=== PATIENT | female | born 1970 | race Caucasian/White ===

== ENCOUNTER 2017-05-17 11:45 | Observation (INO) | payer BC ==
[2017-05-17 14:19] LABS: BASOPHILS # (AUTO) 0.1 X10^3/uL (0.0-0.1); BASOPHILS % (AUTO) 0.8 % (0.2-1.0); EOSINOPHILS # (AUTO) 0.1 x10^3/uL (0.0-0.2); EOSINOPHILS % (AUTO) 1.5 % (0.9-2.9); HEMATOCRIT 38.3 % (36.0-47.0); HEMOGLOBIN 13.2 g/dL (12.0-16.0); LYMPHOCYTES # (AUTO) 1.4 X10^3/uL (1.3-2.9); MEAN CORPUSCULAR HGB CONC 34.5 g/dL (33.0-35.0); MEAN PLATELET VOLUME 8.2 fL (7.4-11.0); MONOCYTES # (AUTO) 0.6 x10^3/uL (0.3-0.8); MONOCYTES % (AUTO) 7.6 % (0.0-13.0); NEUTROPHILS % (AUTO) 73.1 % (42.0-75.0); PLATELET COUNT 192 X10^3/uL (150.0-450.0); WHITE BLOOD COUNT 8.2 X10^3/uL (3.6-10.0)
[2017-05-17] MEDS: NS 1000 ML 1,000 ML IV SCH (14:23)
[2017-05-17 14:41] LABS: ALANINE AMINOTRANSFERASE 35 Units/L (12-78); ALBUMIN 3.8 g/dL (3.4-5.0); ALKALINE PHOSPHATASE 80 Units/L (46-116); ASPARTATE AMINO TRANSFERASE 20 Units/L (15-37); BLOOD UREA NITROGEN 15 mg/dL (7-18); CALCIUM 8.9 mg/dL (8.5-10.1); CHLORIDE 108 mmol/L (98-107); CKMB % 1.1 % (<4); CREATINE KINASE 98 Units/L (26-192); CREATINE KINASE MB 1.1 ng/mL (0-4.0); GLUCOSE 99 mg/dL (65-99); SODIUM 146 mmol/L (136-145); TOTAL PROTEIN 7.5 g/dL (6.4-8.2); TROPONIN I < 0.02 ng/mL (0-1.5); eGFR BLACK RACES > 60 (>60); eGFR NON BLACK RACES > 60 (>60)
[2017-05-17 14:48] LABS: D DIMER < 100 ng/mL (0-400)
--- NOTE | 2017-05-17 14:57 | RAD ---
HISTORY: Chest pain Study: Chest one view Comparison: None Findings: The trachea is midline. The cardiac silhouette is unremarkable. The lungs are clear without focal infiltrate or effusion. The bony thorax is unremarkable. IMPRESSION: 1. No acute cardiopulmonary disease. Reported By:
[2017-05-17] MEDS: ZOFRAN INJ 4 MG VIAL IVP PRN ×2 (15:30→22:17)
[2017-05-17] MEDS: PEPCID 20 MG IV PREMIX* 20 MG/50 ML BAG IV SCH (15:30)
[2017-05-17] MEDS ORDERED: PHENERGAN INJ 25 MG IV PRN (18:00)
[2017-05-17 18:41] LABS: CKMB % 1.1 % (<4); CREATINE KINASE 89 Units/L (26-192); CREATINE KINASE MB < 1.0 ng/mL (0-4.0); TROPONIN I < 0.02 ng/mL (0-1.5)
[2017-05-17 19:52] VITALS: BMI 30.6
[2017-05-17 22:15] LABS: CKMB % 1.3 % (<4); CREATINE KINASE 78 Units/L (26-192); CREATINE KINASE MB < 1.0 ng/mL (0-4.0); TROPONIN I < 0.02 ng/mL (0-1.5)
[2017-05-17] MEDS: TYLENOL 325 MG TAB PO PRN (22:36)
[2017-05-17 22:59] LABS: BILIRUBIN,URINE NEGATIVE (NEGATIVE); BLOOD/HEMOGLOBIN,URINE NEGATIVE (NEGATIVE); GLUCOSE, URINE NEGATIVE (NEGATIVE); KETONES,URINE NEGATIVE (NEGATIVE); LEUKOCYTE ESTERASE ,URINE NEGATIVE (NEGATIVE); NITRITES,URINE NEGATIVE (NEGATIVE); PROTEIN,URINE NEGATIVE (NEGATIVE); UROBILINOGEN,URINE NORMAL (NORMAL)
[2017-05-17 23:05] LABS: APPEARANCE,URINE CLEAR (CLEAR); BACTERIA,URINE 1+ /HPF (NEGATIVE); COLOR,URINE YELLOW (YELLOW); MUCUS,URINE FEW /HPF (NEGATIVE); RBC,URINE NONE SEEN /HPF (NEGATIVE); SQUAMOUS EPITHELIAL CELL,UR FEW /HPF (NEGATIVE)
[2017-05-18] MEDS: NS 1000 ML 1,000 ML IV SCH ×2 (05:40→18:58)
[2017-05-18 06:05] LABS: ALANINE AMINOTRANSFERASE 29 Units/L (12-78); ALBUMIN 2.9 g/dL (3.4-5.0); ALKALINE PHOSPHATASE 66 Units/L (46-116); ASPARTATE AMINO TRANSFERASE 17 Units/L (15-37); BLOOD UREA NITROGEN 17 mg/dL (7-18); CALCIUM 7.8 mg/dL (8.5-10.1); CARBON DIOXIDE 25.4 mmol/L (21-32); CHLORIDE 113 mmol/L (98-107); COR CA(FOR HYPOALB) 8.7 mg/dL (8.5-10.1); CREATININE 1.05 mg/dL (0.55-1.02); GLUCOSE 104 mg/dL (65-99); SODIUM 147 mmol/L (136-145); TOTAL PROTEIN 6.1 g/dL (6.4-8.2); eGFR BLACK RACES > 60 (>60); eGFR NON BLACK RACES 60 (>60)
[2017-05-18 06:09] LABS: BASOPHILS % (AUTO) 0.3 % (0.2-1.0); EOSINOPHILS # (AUTO) 0.1 x10^3/uL (0.0-0.2); EOSINOPHILS % (AUTO) 1.9 % (0.9-2.9); HEMOGLOBIN 11.4 g/dL (12.0-16.0); LYMPHOCYTES # (AUTO) 1.1 X10^3/uL (1.3-2.9); LYMPHOCYTES % (AUTO) 17.7 % (21.0-51.0); MEAN CORPUSCULAR HEMOGLOBIN 30.3 pg (27.0-34.0); MEAN CORPUSCULAR HGB CONC 34.6 g/dL (33.0-35.0); MEAN CORPUSCULAR VOLUME 87.4 fL (80.0-100.0); MEAN PLATELET VOLUME 8.3 fL (7.4-11.0); MONOCYTES # (AUTO) 0.5 x10^3/uL (0.3-0.8); MONOCYTES % (AUTO) 7.7 % (0.0-13.0); NEUTROPHILS # (AUTO) 4.7 x10^3/uL (2.2-4.8); NEUTROPHILS % (AUTO) 72.4 % (42.0-75.0); PLATELET COUNT 145 X10^3/uL (150.0-450.0); RED BLOOD COUNT 3.77 X10^6/uL (3.5-5.4); RED CELL DISTRIBUTION WIDTH 13.8 % (11.6-16.5); WHITE BLOOD COUNT 6.4 X10^3/uL (3.6-10.0)
--- NOTE | 2017-05-18 06:12 | RAD ---
HISTORY: Chest pain Study: Single-view chest Comparison: May 17, 2017 Findings: There again surgical clips present in the left axilla. The trachea is midline. The heart size is upp er normal with aortic uncoiling. Lungs and pleural spaces are clear. Osseous structures are intact. IMPRESSION: Hypertensive configuration without acute cardiopulmonary disease. Reported By:
[2017-05-18] MEDS: TOPROL XL PO SCH (08:38)
[2017-05-18] MEDS: PROTONIX TAB 40 MG PO SCH (08:38)
[2017-05-18] MEDS: PEPCID 20 MG IV PREMIX* 20 MG/50 ML BAG IV SCH (08:38)
[2017-05-18] MEDS: PATIENT'S HOME MEDICATION (Letrozole [Femara] 2.5 MG) PO SCH (08:47)
--- NOTE | 2017-05-18 10:48 | DR.UPDATE ---
H&P Update History and Physical Update: WAS SEEN IN THE OFFICE TODAY. A H&P WAS COMPLETED PRIOR TO ADMISSION. PATIENT HAS BEEN SEEN AND EXAMINED WITH NO CHANGES NOTED. Changes noted: NO Yes with the following:
[2017-05-18] MEDS: ECOTRIN TAB 325 MG PO SCH (12:12)
--- NOTE | 2017-05-18 17:40 | US ---
RIGHT UPPER QUADRANT ULTRASOUND HISTORY: Abdominal pain Comparison: None Technique: Multiple medina scale and color flow Doppler images of the right upper quadrant were obtain ed. Findings: Overall study is limited by overlying bowel gas. The liver is increased in echogenicity. No focal m ass. No intrahepatic bile duct dilatation. No gallstones. No pericholecystic fluid or gallbladder wa ll thickening. The technologist did not report a positive sonographic Sanabria's sign. The common bile duct measures 3 mm. The right kidney measures 11.2 cm. No hydronephrosis or renal masses. The pancreas is obscured by overlying bowel gas. IMPRESSION: 1. Hepatic steatosis. Reported By:
[2017-05-18] MEDS: TYLENOL 325 MG TAB PO PRN (17:41)
[2017-05-18] MEDS ORDERED: CRESTOR TAB 10 MG PO SCH (21:00)
--- NOTE | 2017-05-18 21:35 | PCM.PROG ---
Progress Note - Progress Note for Day of Date: 05/18/17 - Subjective Subjective: IS A 47 YEAR OLD PATIENT OF OURS WHO WAS DIRECT ADMITTED FROM THE OFFICE YESTERDAY WITH COMPLAINTS OF CHEST PAIN AND UPPER BACK AND SHOULDER PAIN. SHE WAS ALERT AND ORIENTED, SITTING UP IN BED, ON MORNING ROUNDS. PATIENT CONTINUES WITH CHEST PAIN AND SHORTNESS OF BREATH. SHE IS ALSO NOTED WITH COMPLAINTS OF RUQ PAIN. LUNGS WERE CLEAR ON AUSCULTATION. VITALS THIS MORNING WERE 98.0-73-20-98%-107/66. CBC WNL EXCEPT HBG 11.4, HCT 33. CMP WITHIN NORMAL LIMITS EXCEPT SODIUM 147, CHLORIDE 113, CREATININE 1.05, GLUCOSE 1.4, CALCIUM 7.8, TOTAL PROTEIN 6.1, ALBUMIN 2.8. CHEST XRAY REPORTS HYPERTENSIVE CONFIGURATION WITHOUT ACUTE PULMONARY DISEASE. ECHO REPORTED AN EJECTION FRACTION OF 65%. WE WILL ORDER A GALLBLADDER US, START PATIENT ON ROSUVASTATIN AT HS, AND ECOTRIN 325 MG HS. WE WILL RECHECK LABS AND FOLLOW UP WITH PATIENT IN AM. - Past Medical Family Social History Past Med/Fam/Surg Hx: No changes since H&P Allergies: Allergies No Known Drug Allergies Allergy (Verified 05/17/17 14:00) - Review of Systems ROS: No change since H&P - Vital Signs and I&O's Vital Signs: Temperature 98.8 F Pulse Rate [Left Brachial] 88 Respiratory Rate 18 Blood Pressure [Right Arm] 131/71 Blood Pressure [Left Arm] 132/66 O2 Sat by Pulse Oximetry 98 Intake and Output: Intake & Output 05/16/17 05/17/17 05/18/17 05/19/17 11:59 11:59 11:59 11:59 Intake Total 665 440 Output Total 0 Balance 665 440 - Physical Exam Oriented: Normal. negative: Time, Person, Place, Not Oriented, Unable to test, Other Eyes: Normal. negative: Blurred Vision, Diplopia, Discharge, Pain, Redness, Photophobia, Other Ear: Normal. negative: Right, Left, Swelling, Ecchymosis, Hemotypanum, Abrasion , Laceration Nose: Normal. negative: Injected, Discharge, Blood, Other Throat: Normal. negative: Tonsillar Hypertrophy, Red, Exudate, Dry, Other Respiratory: Normal, OTHER (SHORTNESS OF BREATH ). negative: Right, Left, Generalized, Superior, Inferior, Diminished, Wheezes, Rales, Rhonchi Cardiovascular: Normal, Other (CHEST PAIN). negative: Tachycardia, Bradycardia , Irregular, S3, S4, Systolic, Diastolic, Murmur, Edema : Normal. negative: Dysuria, Hematuria, Frequency, Discharge, Testicular Pain , Bleeding, , Other Auscultation: Bowel Sounds: Normal. negative: Bruit, Absent, Increased, Decreased, High Pitched, Other Palpation: Normal Tenderness: RUQ (RUQ PAIN ) Skin: Normal. negative: Decreased Turgur, Rash, Papular, Macular, Maculopapular , Vesicular, Pustular, Petechial, Red, Tender, Hot, Diaphoresis, Wound, Bruising , Ecchymosis, Other Musculoskeletal: Normal. negative: Right, Left, Shoulder, Clavicle, Arm, Elbow , Forearm, Wrist, Hand, Hip, Thigh, Knee, Leg, Ankle, Foot, Back:Thoracic, Back: Lumbar, Back:Midline, Back:Paraspinous, Pelvis, Swelling, Tender, Deformity, Pulse Deficit, Motor Deficit, Sensory Deficit, Instability, Crepitance Psychiatric: Normal. negative: Anxiety, Depression, Agitation, Other Mood Description: Calm. negative: Angry, Apathetic, Depressed, Fearful, Flat, Happy, Hostile, Sad, Suspicious, Withdrawn, Anxious, Appropriate, Labile Affect: Normal Speech Pattern: Clear, Appropriate - Laboratory and Diagnostics Result Diagrams: 05/18/17 05:32 05/18/17 05:32 Labs: Laboratory WBC 6.4 X10^3/uL (3.6-10.0) 05/18/17 05:32 RBC 3.77 X10^6/uL (3.5-5.4) 05/18/17 05:32 Hgb 11.4 g/dL (12.0-16.0) L 05/18/17 05:32 Hct 33.0 % (36.0-47.0) L 05/18/17 05:32 MCV 87.4 fL (80.0-100.0) 05/18/17 05:32 MCH 30.3 pg (27.0-34.0) 05/18/17 05:32 MCHC 34.6 g/dL (33.0-35.0) 05/18/17 05:32 RDW 13.8 % (11.6-16.5) 05/18/17 05:32 Plt Count 145 X10^3/uL (150.0-450.0) L 05/18/17 05:32 MPV 8.3 fL (7.4-11.0) 05/18/17 05:32 Neut % 72.4 % (42.0-75.0) 05/18/17 05:32 Lymph % 17.7 % (21.0-51.0) L 05/18/17 05:32 Mcdonough % 7.7 % (0.0-13.0) 05/18/17 05:32 Eos % 1.9 % (0.9-2.9) 05/18/17 05:32 Baso % 0.3 % (0.2-1.0) 05/18/17 05:32 Neut # 4.7 x10^3/uL (2.2-4.8) 05/18/17 05:32 Lymph # 1.1 X10^3/uL (1.3-2.9) L 05/18/17 05:32 Mcdonough # 0.5 x10^3/uL (0.3-0.8) 05/18/17 05:32 Eos # 0.1 x10^3/uL (0.0-0.2) 05/18/17 05:32 Baso # 0.0 X10^3/uL (0.0-0.1) 05/18/17 05:32 Absolute Nucleated RBC 0.0 /100WBC 05/18/17 05:32 D-Dimer < 100 ng/mL (0-400) 05/17/17 14:02 Sodium 147 mmol/L (136-145) H 05/18/17 05:32 Corrected Sodium TNP 05/18/17 05:32 Potassium 3.7 mmol/L (3.5-5.1) 05/18/17 05:32 Chloride 113 mmol/L (98-107) H 05/18/17 05:32 Carbon Dioxide 25.4 mmol/L (21-32) 05/18/17 05:32 BUN 17 mg/dL (7-18) 05/18/17 05:32 Creatinine 1.05 mg/dL (0.55-1.02) H 05/18/17 05:32 Est GFR (MDRD) Af Amer > 60 (>60) 05/18/17 05:32 Est GFR (MDRD) Non-Af 60 (>60) 05/18/17 05:32 Glucose 104 mg/dL (65-99) H 05/18/17 05:32 Calcium 7.8 mg/dL (8.5-10.1) L 05/18/17 05:32 Corrected Calcium 8.7 mg/dL (8.5-10.1) 05/18/17 05:32 Total Bilirubin 0.20 mg/dL (0.2-1.0) 05/18/17 05:32 AST 17 Units/L (15-37) 05/18/17 05:32 ALT 29 Units/L (12-78) 05/18/17 05:32 Alkaline Phosphatase 66 Units/L (46-116) 05/18/17 05:32 Creatine Kinase 78 Units/L (26-192) 05/17/17 21:47 CK-MB (CK-2) < 1.0 ng/mL (0-4.0) 05/17/17 21:47 CK/CKMB % Calc 1.3 % (<4) 05/17/17 21:47 Troponin I < 0.02 ng/mL (0-1.5) 05/17/17 21:47 Total Protein 6.1 g/dL (6.4-8.2) L 05/18/17 05:32 Albumin 2.9 g/dL (3.4-5.0) L 05/18/17 05:32 Globulin 3.2 g/dL (2.5-4.5) 05/18/17 05:32 Albumin/Globulin Ratio 0.9 Ratio (1.1-2.1) L 05/18/17 05:32 Specimen Type Clean catch urine 05/17/17 22:21 Urine Color Yellow (YELLOW) 05/17/17 22:21 Urine Appearance Clear (CLEAR) 05/17/17 22:21 Urine pH 5.0 (5.0 - 8.0) 05/17/17 22:21 Ur Specific [place] 1.025 (1.000-1.030) 05/17/17 22:21 Urine Protein Negative (NEGATIVE) 05/17/17 22:21 Urine Glucose (UA) Negative (NEGATIVE) 05/17/17 22:21 Urine Ketones Negative (NEGATIVE) 05/17/17 22:21 Urine Occult Blood Negative (NEGATIVE) 05/17/17 22:21 Urine Nitrite Negative (NEGATIVE) 05/17/17 22:21 Urine Bilirubin Negative (NEGATIVE) 05/17/17 22:21 Urine Urobilinogen Normal (NORMAL) 05/17/17 22:21 Ur Leukocyte Esterase Negative (NEGATIVE) 05/17/17 22:21 Urine RBC None seen /HPF (NEGATIVE) 05/17/17 22:21 Urine WBC 3-5 /HPF (NEGATIVE) 05/17/17 22:21 Ur Squamous Epith Cells Few /HPF (NEGATIVE) 05/17/17 22:21 Urine Bacteria 1+ /HPF (NEGATIVE) 05/17/17 22:21 Urine Mucus Few /HPF (NEGATIVE) 05/17/17 22:21 Ur Culture Indicated? No/not indicated 05/17/17 22:21 - Plan (1) Chest pain Status: Acute Qualifiers: Chest pain type: unspecified Ischemic chest pain type: I Qualified Code(s ): R07.9 - Chest pain, unspecified Plan: ASA 325MG DAILY, CONTINUE TO MONITOR (2) Right upper quadrant abdominal pain Status: Acute Plan: PEPCID 20MG IV DAILY, GALLBLADDER US, CONTINUE TO MONITOR.
[2017-05-19] MEDS: NS 1000 ML 1,000 ML IV SCH (05:47)
[2017-05-19 06:19] LABS: BASOPHILS % (AUTO) 0.4 % (0.2-1.0); EOSINOPHILS # (AUTO) 0.1 x10^3/uL (0.0-0.2); EOSINOPHILS % (AUTO) 1.7 % (0.9-2.9); HEMATOCRIT 34.1 % (36.0-47.0); HEMOGLOBIN 11.7 g/dL (12.0-16.0); LYMPHOCYTES % (AUTO) 14.9 % (21.0-51.0); MEAN CORPUSCULAR HGB CONC 34.3 g/dL (33.0-35.0); MEAN CORPUSCULAR VOLUME 87.6 fL (80.0-100.0); MEAN PLATELET VOLUME 8.2 fL (7.4-11.0); MONOCYTES # (AUTO) 0.6 x10^3/uL (0.3-0.8); MONOCYTES % (AUTO) 8.3 % (0.0-13.0); NEUTROPHILS # (AUTO) 5.1 x10^3/uL (2.2-4.8); NEUTROPHILS % (AUTO) 74.7 % (42.0-75.0); PLATELET COUNT 144 X10^3/uL (150.0-450.0); WHITE BLOOD COUNT 6.8 X10^3/uL (3.6-10.0)
[2017-05-19 06:32] LABS: ALANINE AMINOTRANSFERASE 29 Units/L (12-78); ALBUMIN 2.8 g/dL (3.4-5.0); ALKALINE PHOSPHATASE 72 Units/L (46-116); ASPARTATE AMINO TRANSFERASE 17 Units/L (15-37); BLOOD UREA NITROGEN 11 mg/dL (7-18); CALCIUM 7.6 mg/dL (8.5-10.1); CARBON DIOXIDE 26.9 mmol/L (21-32); CHLORIDE 112 mmol/L (98-107); COR CA(FOR HYPOALB) 8.6 mg/dL (8.5-10.1); CREATININE 0.73 mg/dL (0.55-1.02); GLUCOSE 100 mg/dL (65-99); SODIUM 145 mmol/L (136-145); TOTAL PROTEIN 6.1 g/dL (6.4-8.2); eGFR BLACK RACES > 60 (>60); eGFR NON BLACK RACES > 60 (>60)
--- NOTE | 2017-05-19 07:40 | RAD ---
HISTORY: Chest pain and shortness of breath Study: Single-view chest Comparison: May 18, 2017 Findings: The trachea is midline. The cardiac silhouette is stable. Surgical clips are again noted in the lef t axilla.. The lungs are clear without focal infiltrate or effusion. The bony thorax is unremarkab le. IMPRESSION: 1. No acute cardiopulmonary disease. Reported By:
[2017-05-19 08:42] VITALS: BP 133/75
[2017-05-19] MEDS: TOPROL XL PO SCH (08:47)
[2017-05-19] MEDS: PROTONIX TAB 40 MG PO SCH (08:47)
[2017-05-19] MEDS: ECOTRIN TAB 325 MG PO SCH (08:47)
[2017-05-19] MEDS: PATIENT'S HOME MEDICATION (Letrozole [Femara] 2.5 MG) PO SCH (08:48)
[2017-05-19] MEDS: PEPCID 20 MG IV PREMIX* 20 MG/50 ML BAG IV SCH (08:51)
--- NOTE | 2017-05-19 11:19 | DR.CARTERD ---
- Discharge Summary for: Discharge Summary for Date of:: 05/19/17 - Admission Date Date of Admission: 05/17/17 - Admission Diagnoses Admission Diagnosis: (1) Chest pain (2) Right upper quadrant abdominal pain - Discharge Date Discharge Date: 05/19/17 - Discharge Diagnoses Discharge Diagnosis: (1) Chest pain (2) Right upper quadrant abdominal pain - Hospital Course Hospital Course: IS A 47 YEAR OLD PATIENT OF OURS WHO WAS A DIRECT ADMISSION FROM OUR OFFICE FOR COMPLAINTS OF CHEST PAIN/PRESSURE. PATIENT STATES THAT HER PAIN STARTED 2-3 MONTHS PRIOR TO ADMISSION. HER CHEST PAIN WAS ACCOMPANIED BY SHORTNESS OF BREATH THAT HAS PROGRESSIVELY GOTTEN WORSE. SHE WAS NOTED WITH COMLAINTS OF FATIGUE AND MALAISE. PATIENT STATED THAT SHE HAD A CARDIOLOGY APPOINTMENT SCHEDULED, BUT IT WAS A MONTH FROM NOW. WE ADMITTED PATIENT FOR FURTHER TREATMENT AND EVALUATION. WE PLANNED TO CHECK CBC, CMP, H-PYLORI, SERIAL CARDAC ENZYMES AND EKGS, AND A CARDIAC CTA ON ADMISSION. CBC ON ADMISSION WAS WNL. CMP REPORTED WNL EXCEPT SODIUM 146, CHLORIDE 108. D-DIMER WNL. URINALYSIS REPORTED WBC 3-5, BACTERIA 1+. CARDIAC ENZYMES WNL. EKGS REPORTED SINUS RHYTHM. CHEST XRAY CLEAR. ON SECOND DAY OF HOSPITAL STAY, PATIENT CONTINUED WITH CHEST PAIN, SHORTNESS OF BREATH, AND RUQ ABDOMINAL PAIN. WE STARTED HER ON ECOTRIN 325MG DAILY AND CRESTOR 20MG HS. AN ECHO WAS OBTAINED AND REPORTED AN EF OF 65%. WE ORDERED A GALLBLADDER US WHICH REPORTED HEPATIC STEATOSIS. ON THIRD DAY OF HOSPITAL STAY, PATIENT REPORTED IMPROVEMENT IN CONDITION. SHE DENIED CHEST PAIN OR SHORTNESS OF BREATH. SHE CONTINUE WITH RUQ PAIN, BUT NOT INTENSE PREVIOUS DAY. VITALS WERE 97.5, 74, 20, 99%, 133/75. CBC WNL EXCEPT HGB 11.7/HCT 34.1. CMP WNL EXCEPT CARBON DIOXIDE 112, GLUCOSE 100, CALCIUM 7.6, TOTAL PROTEIN 6.1, ALBUMIN 2.8. WE PLANNED FOR DISCHARG. INSTRUCTIONS FOR MEDICATIONS AND FOLLOW UP WERE GIVEN TO PATIENT. SHE VERBALIZED UNDERSTANDING. PATIENT WAS DISCHARGED HOME IN STABLE CONDITION ON CURRENT MEDICATIONS AND A PRESCRIPTION FOR GI COCKTAIL, AND ZANTAC. SHE WILL FOLLOW UP IN OFFICE, WHERE WE WILL SET HER UP FOR AN OUTPATIENT HIDA SCAN. - Discharge Medications Discharge Medications: Letrozole [Femara] 2.5 mg PO DAILY 05/17/17 [History] Metoprolol Succinate Ext Rel [TOPROL XL 50 MG *] 1 tab PO DAILY 05/17/17 [ History] Pantoprazole Sodium 40 mg [PROTONIX 40 MG *] 1 tab PO DAILY 05/17/17 [History] Aspirin EC [ECOTRIN 325 MG *] 325 mg PO DAILY #90 tab 05/19/17 [Rx] Gi Cocktail [LEVSIN/Maalox/Lidoc Visc (GI COCKTAIL) *] 15 ml PO QID #240 ml [Rx] Ranitidine HCl [ZANTAC TAB 150 MG *] 150 mg PO DAILY #30 tab 05/19/17 [Rx] Rosuvastatin Calcium [CRESTOR 10 MG *] 20 mg PO HS #30 tab 05/19/17 [Rx]
== END 2017-05-19 09:55 | disposition home or self-care (01) ==
LOC: UNDOADMOB 11:45 → MED/SURG 11:45
PROVIDERS: ADMIT Internal Medicine; ATTEND Internal Medicine
DX: R07.89 Other chest pain (principal); R06.02 Shortness of breath; R10.11 Right upper quadrant pain; R11.2 Nausea with vomiting, unspecified; I10 Essential (primary) hypertension; C50.919 Malignant neoplasm of unspecified site of unspecified female breast; K76.0 Fatty (change of) liver, not elsewhere classified; E87.0 Hyperosmolality and hypernatremia; Z79.899 Other long term (current) drug therapy; Z79.01 Long term (current) use of anticoagulants; M13.89 Other specified arthritis, multiple sites; K21.9 Gastro-esophageal reflux disease without esophagitis
CPT/HCPCS: 36415; 71010; 76705; 80053; 81001; 82550; 82553; 84484; 85025; 85378; 93005; 93306; 94760; A4216; A4222; S0028; G0378; J2405; J2550